=== PATIENT | male | born 1970 | race American Indian/Alaskan Native ===

== ENCOUNTER 2021-01-05 22:58 | Inpatient (IN) | payer MEDICAID ==
[~2021-01-05] VITALS: Ht 190.5 cm; Wt 117.9 kg
--- NOTE | 2021-01-05 23:15 | NUR ---
[id number] FROM [facility] [place] C/O NAUSEA, LETHARGIC, AND DIZZY S/P RUNNING ON TREADMILL. BG 140 -SYNCOPE -LOC. PT ALERT AND ORIENTED X4. AMBULATORY. DENIES ANY SOB.
[2021-01-05] MEDS ORDERED: IV NS 0.9% 500 ML BAG IV ONE (23:30)
[2021-01-05] MEDS ORDERED: MECLIZINE HCL 12.5 MG TABLET PO ONE (23:30)
[2021-01-05] MEDS ORDERED: ONDANSETRON HCL/PF 4 MG/2 ML VIAL IVP ONE (23:30)
[2021-01-05] MEDS ORDERED: hydrALAZINE HCL IV 20 MG VIAL IV ONE (23:30)
--- NOTE | 2021-01-05 23:33 | NUR ---
BLOOD TAKEN AND SENT TO LAB
[2021-01-05 23:35] LABS: BASOPHILS # (AUTO) 0.1 K/uL (0.0-0.2); BASOPHILS % (AUTO) 0.9 % (0.0-2.0); EOSINOPHILS % (AUTO) 1.6 % (0.0-6.0); HEMATOCRIT 39 % (39-51); HEMOGLOBIN 12.8 g/dL (13.5-17.5); LYMPHOCYTES # (AUTO) 0.7 K/uL (0.8-4.8); LYMPHOCYTES % (AUTO) 8.9 % (20.0-44.0); MEAN CORPUSCULAR HGB CONC 33 g/dl (31.0-36.0); MEAN CORPUSCULAR VOLUME 85 fL (80-96); MONOCYTES # (AUTO) 0.5 K/uL (0.1-1.30); MONOCYTES % (AUTO) 5.5 % (2.0-12.0); NEUTROPHILS # (AUTO) 6.8 K/uL (1.8-8.9); NEUTROPHILS % (AUTO) 83.1 % (43.0-81.0); PLATELET COUNT (AUTO) 259 K/uL (150-450); RED BLOOD CELL COUNT(AUTO) 4.55 MIL/uL (4.5-6.0); WHITE BLOOD COUNT (AUTO) 8.2 K/uL (4.3-11.0)
[2021-01-05] MEDS ORDERED: hydrALAZINE HCL IV 20 MG VIAL ONE (23:36)
[2021-01-05] MEDS ORDERED: ONDANSETRON HCL/PF 4 MG/2 ML VIAL ONE (23:36)
[2021-01-05] MEDS ORDERED: MECLIZINE HCL 25 MG TABLET ONE (23:37)
[2021-01-05 23:46] LABS: CALCIUM, SERUM 8.4 mg/dL (8.5-10.1); CREATININE 1.6 mg/dL (0.6-1.3); POTASSIUM 3.5 mmol/L (3.5-5.1)
[2021-01-05 23:52] LABS: ALBUMIN 3.5 g/dL (3.4-5.0); BILIRUBIN,DIRECT 0.2 mg/dL (0.0-0.2); BILIRUBIN,TOTAL 0.8 mg/dL (0.2-1.0); TOTAL PROTEIN, SERUM 7.2 g/dL (6.4-8.2)
[2021-01-06] MEDS ORDERED: hydrALAZINE HCL IV 20 MG VIAL IV ONE (00:30)
[2021-01-06] MEDS ORDERED: hydrALAZINE HCL IV 20 MG VIAL ONE (00:31)
--- NOTE | 2021-01-06 00:58 | NUR ---
PT STATES, NAUSEA SUBSIDED A BIT. BP IMPROVING, ON 2L O2 ORDERED PER MD. WILL CONTINUE TO MONITIOR.
[2021-01-06] MEDS ORDERED: NICARDIPINE IN DEXTROSE,ISO-OS 200 ML IV ONE ×2 (01:49→05:54)
[2021-01-06] MEDS ORDERED: NICARDIPINE HCL 40 MG in IV NS 0.9% 184 ML IV PRN (02:00)
[2021-01-06] MEDS ORDERED: NICARDIPINE IN NACL, ISO-OSM 200 ML IV PRN (02:00)
--- NOTE | 2021-01-06 02:24 | NUR ---
PANEL PAGED PER ER MD ORDER.
--- NOTE | 2021-01-06 02:45 | NUR ---
YESSY MORRIS TALKING TO DR. BRAXTON REGARDING PT ADMISSION.
[2021-01-06] MEDS ORDERED: ONDANSETRON HCL/PF 4 MG/2 ML VIAL IVP PRN (06:00)
[2021-01-06] MEDS ORDERED: METOPROLOL TARTRATE 25 MG TABLET PO ONE ×2 (06:00→09:00)
[2021-01-06] MEDS ORDERED: hydrALAZINE HCL 25 MG TABLET PO PRN (06:00)
[2021-01-06] MEDS ORDERED: ACETAMINOPHEN 325 MG TABLET PO PRN (06:00)
[2021-01-06] MEDS ORDERED: HYDROCODONE/APAP 5/325MG TABLET PO PRN (06:00)
--- NOTE | 2021-01-06 06:11 | NUR ---
xray at bedside
[2021-01-06 07:18] LABS: CALCIUM, SERUM 8.2 mg/dL (8.5-10.1); CREATININE 1.4 mg/dL (0.6-1.3); POTASSIUM 3.3 mmol/L (3.5-5.1)
[2021-01-06 07:20] LABS: MAGNESIUM 2.2 mg/dL (1.8-2.4); PHOSPHORUS 3.4 mg/dL (2.5-4.9)
--- NOTE | 2021-01-06 07:20 | NUR ---
Patient in bed asleep, on 02 @ 2lpm via NC, breathing evenly and unlabored. connected to the monitor and pulse ox. Kept comfortable, will continue to monitor accordingly.
[2021-01-06] MEDS: PANTOPRAZOLE 40 MG TABLET.DR PO SCH (07:30)
[2021-01-06 07:56] LABS: THYROID STIMULATING HORMONE 0.811 uIU/mL (0.358-3.74)
[2021-01-06] MEDS ORDERED: METOPROLOL TARTRATE 50 MG TABLET ONE (08:54)
[2021-01-06] MEDS ORDERED: PANTOPRAZOLE 40 MG TABLET.DR PO ONE (08:54)
--- NOTE | 2021-01-06 09:14 | NUR ---
8:45 AM PT EATING BREAKFAST, PT ASKED EXAM TO BE DONE LATER.
[2021-01-06] MEDS ORDERED: HYDROCODONE/APAP 5/325MG TABLET ONE (09:17)
[2021-01-06 09:20] LABS: BILIRUBIN,URINE NEGATIVE (NEGATIVE); COLOR,URINE YELLOW (YELLOW); LEUKOCYTE ESTERASE ,URINE NEGATIVE (NEGATIVE); NITRITE, URINE NEGATIVE (NEGATIVE); PROTEIN,URINE NEGATIVE (NEGATIVE); UGLUCOSE NEGATIVE (NEGATIVE); UROBILINOGEN,URINE 0.2 EU/dL (0.2)
[2021-01-06 09:25] LABS: URINE TOTAL PROTEIN 9.1 mg/dL (0-11.9)
[2021-01-06 09:32] LABS: EOSINOPHIL,URINE None Seen
--- NOTE | 2021-01-06 10:03 | NUR ---
Assigned Room 304-1
[2021-01-06] MEDS ORDERED: POTASSIUM CHLORIDE 20 MEQ TAB.PRT.SR PO ONE ×2 (10:30→10:34)
--- NOTE | 2021-01-06 10:45 | NUR ---
report given to Elba CAR
--- NOTE | 2021-01-06 11:07 | NUR ---
wheeled patient via gurney accompanied by RN and emt in no distress. RN assigned to patient at bedside to assume care.
--- NOTE | 2021-01-06 11:13 | NUR ---
TELE/RN NOTES RECEIVED REPORT FROM EYAD ER NURSE. PATIENT IS ALERT AND ORIENTED X4. PATIENT IS ON ROOM AIR SATURATION 97%. PATIENT IN NO APPARENT RESPIRATORY DISTRESS NOTED. NO COMPLAINED OF PAIN AT THIS TIME. INITIAL ASSESSMENT WAS DONE AND RECORDED. TELE MONITOR READING SINUS RHYTHM WITH BBB 68 BPM. VITAL SIGN TAKEN AND RECORDED. WILL CONTINUE
[2021-01-06 12:00] VITALS: BP 124/74
[2021-01-06 16:00] VITALS: BP 140/87
--- NOTE | 2021-01-06 19:04 | NUR ---
TELE/RN CLOSING NOTES PATIENT IS ALERT AND ORIENTED X4. PATIENT IS ON ROOM AIR SATURATION 99%. PATIENT IN NO APPARENT RESPIRATORY DISTRESS NOTED. NO COMPLAINED OF PAIN NOTED AT THIS TIME. SEEN AND EXAMINED BY MD WITH ORDERS MADE AND CARRIED OUT. ALL DUE MEDICATIONS WAS GIVEN. TELE MONITOR READING SINUS RHYTHM 67 BPM. IV ACCESS AT LEFT HAND 20 G PATENT AND INTACT SAFETY PRECAUTIONS WAS IN PLACED. BED IN LOWEST POSITION AND LOCKED X2. CALL LIGHT WITHIN REACH. WILL ENDORSED TO YOUTH MANAGER FOR МАРИЯ.
--- NOTE | 2021-01-06 19:54 | NUR ---
medical safety director Opening Notes Patient was last seen awake in bed resting. Patient's alert and oriented x4. Patient's on room air with no respiratory distress noted. Patient's connected to a tele monitor with no cardiac distress noted. Patient has an IV access on his left hand. Safety measures in place: Bed locked, side rails up x2, and call light within reach. Will continue to monitor the patient.
[2021-01-06 20:00] VITALS: BP 144/89
[2021-01-06] MEDS ORDERED: FUROSEMIDE 20 MG/2 ML VIAL IV SCH (21:30)
[2021-01-07] VITALS: BP 153/97
[2021-01-07 04:00] VITALS: BP 116/104
[2021-01-07 05:56] LABS: BASOPHILS # (AUTO) 0.1 K/uL (0.0-0.2); BASOPHILS % (AUTO) 0.7 % (0.0-2.0); EOSINOPHILS % (AUTO) 2.8 % (0.0-6.0); HEMATOCRIT 37 % (39-51); HEMOGLOBIN 12.7 g/dL (13.5-17.5); LYMPHOCYTES % (AUTO) 12.1 % (20.0-44.0); MEAN CORPUSCULAR HGB CONC 34 g/dl (31.0-36.0); MEAN CORPUSCULAR VOLUME 85 fL (80-96); MONOCYTES # (AUTO) 0.7 K/uL (0.1-1.30); MONOCYTES % (AUTO) 7.7 % (2.0-12.0); NEUTROPHILS # (AUTO) 6.6 K/uL (1.8-8.9); NEUTROPHILS % (AUTO) 76.7 % (43.0-81.0); PLATELET COUNT (AUTO) 291 K/uL (150-450); RED BLOOD CELL COUNT(AUTO) 4.39 MIL/uL (4.5-6.0); WHITE BLOOD COUNT (AUTO) 8.6 K/uL (4.3-11.0)
[2021-01-07 06:20] LABS: ALBUMIN 3.5 g/dL (3.4-5.0); BILIRUBIN,TOTAL 0.8 mg/dL (0.2-1.0); CALCIUM, SERUM 8.2 mg/dL (8.5-10.1); CREATININE 1.9 mg/dL (0.6-1.3); MAGNESIUM 2.2 mg/dL (1.8-2.4); POTASSIUM 3.5 mmol/L (3.5-5.1); TOTAL PROTEIN, SERUM 7.1 g/dL (6.4-8.2)
--- NOTE | 2021-01-07 06:49 | NUR ---
laborer rags Closing Notes Patient was last seen awake in bed resting. Patient's alert and oriented x4. Patient's on room air with no respiratory distress noted. Patient's connected to a tele monitor with no cardiac distress noted. Patient has an IV access on his left hand, which is intact, patient, and flushing well. Safety measures in place: Bed locked, side rails up x2, and call light within reach. Will endorse care to the day shift nurse.
--- NOTE | 2021-01-07 07:10 | NUR ---
THREAD DRAWER OPENING NOTE RECEIVED ENDORSMENT FROM NURSE MAJOR. PATIENT IS ALERT AND ORIENTED X4. PATIENT IS ON ROOM AIR SATURATION 98%. PATIENT IN NO APPARENT RESPIRATORY DISTRESS NOTED. NO COMPLAINED OF PAIN AT THIS TIME. ON TELE MONITOR READING WITH SR WITH 1ST DEGREE AV BLOCK AT 76. PATIENT'S ECHO RESULT REVEALED EF OF 15-20%. PER OXYGEN TANK FILLER NURSE, DR. PAEZ AWARE. WITH LEFT HAND IV ACCESS GAUGE 20 ON SALINE LOCK. COMFORT MEASURES PROVIDED. ENCOURAGED TO DO DEEP BREATHING EXERCISES. WILL CONTINUE TO MONITOR PATIENT.
[2021-01-07 08:00] VITALS: BP 174/112
[2021-01-07] MEDS: PANTOPRAZOLE 40 MG TABLET.DR PO SCH (08:21)
[2021-01-07 09:00] VITALS: BP 174/112
[2021-01-07] MEDS ORDERED: FUROSEMIDE 20 MG/2 ML VIAL IV SCH (09:00)
--- NOTE | 2021-01-07 09:00 | NUR ---
CHANGE BOOTH ATTENDANT NOTE PATIENT WITH BP OF 174/112 AND HR OF 74. PATIENT GIVEN PRN MEDICATION OF HYDRALAZINE AND ALSO THE STANDING ORDER OF LASIX. PROVIDED WITH CALM AND QUIET ENVIRONMENT. ENCOURAGED TO DO DEEP BREATHING EXERCISES. PATIENT VERBALIZED DESIRE TO GO HOME TODAY. HE SAID HE HAVE TO GO TODAY BECAUSE HE NEEDS TO WORK TOMORROW OTHERWISE HE IS GOING TO LOSE HIS BENEFITS. PATIENT INSTRUCTED TO RELAX AND WAIT FOR THE DOCTOR'S VISIT TODAY. PATIENT DENIES ANY SIGNS AND SYMPTOMS OF HYPERTENSION. WILL CONTINUE TO MONITOR PATIENT.
--- NOTE | 2021-01-07 09:30 | NUR ---
MS RN NOTE PATIENT STILL WITH ELEVATED BP OF 172/108 BUT NO SIGNS AND SYMPTOMS OF HYPERTENSION. DR. POWER NOTIFIED WITH NO NEW ORDER. PROVIDED WITH CALM AND QUIET ENVIRONMENT. WILL CONTINUE TO MONITOR PATIENT.
--- NOTE | 2021-01-07 12:00 | NUR ---
MS RN NOTE PATIENT SEEN BY DR. POWER AND PATIENT OPTED TO GO AMA. PATIENT AGREED TO SIGN AMA FORM AND VERBALIZED UNDERSTANDING AND REPERCUSSIONS OF HIS ACTION. HEALTH TEACHING DONE REGARDIGN DISCHARGE INSTRUCTIONS AND DISCHARGE AGAINST MEDICAL ADVICE. AWAITING TRANSPORTATION. IV ACCESS AND COVERED WITH DRESSING, TOLERATED WELL. NOT IN DISTRESS.
--- NOTE | 2021-01-07 13:00 | NUR ---
MS RN NOTE PATIENT HOME AGAINST MEDICAL ADVICE WITH FORM SIGNED AND ATTACHED TO CHART. PATIETN WITH NO SIGNS OF DISTRESS. PATIENT ACCOMPANIED BY NURSE YFN AND PARTNER TO LOBBY ON A GURNEY VIA WHEELCHAIR.
[2021-01-08 15:06] LABS: *SPE ALPHA-1-GLOBULIN 0.2 g/dL (0.0-0.4); *SPE ALPHA-2-GLOBULIN 0.7 g/dL (0.4-1.0); *SPE BETA GLOBULIN 1.1 g/dL (0.7-1.3); *SPE M-SPIKE Not Observed g/dL (Not Observed)
== END 2021-01-07 13:00 | disposition left against medical advice (07) | DRG 199 ==
LOC: ER 23:01 → TRANSITION 01-06 08:01 → TELE 01-06 10:30 → MED 01-07 11:11
PROVIDERS: ADMIT Internal Medicine; ATTEND Internal Medicine
DX: I16.0 Hypertensive urgency (principal); N17.0 Acute kidney failure with tubular necrosis; E83.51 Hypocalcemia; I13.10 Hypertensive heart and chronic kidney disease without heart failure, with stage 1 through stage 4 chronic kidney disease, or unspecified chronic kidney disease; N18.9 Chronic kidney disease, unspecified; Z91.19 Patient's noncompliance with other medical treatment and regimen; E87.6 Hypokalemia; N40.0 Benign prostatic hyperplasia without lower urinary tract symptoms; J32.0 Chronic maxillary sinusitis; Z20.822 Contact with and (suspected) exposure to COVID-19
CPT/HCPCS: 36415; 70450-TC; 71045-TC; 76770-TC; 80048-TC; 80053-TC; 80061-TC; 80076-TC; 82550-TC; 82570-TC; 82962-TC; 83735-TC; 83970; 84100-TC; 84155; 84155-TC; 84165; 84300-TC; 84443-TC; 84484-TC; 85025-TC; 85730-TC; 87081-TC; 93307-TC; C9803; G0378; J0360; J1940; J2405; J7040; J8597